=== PATIENT | female | born 1985 | race Two or more races ===

== ENCOUNTER 2019-06-18 13:03 | Emergency (ER) | payer OTHER ==
[~2019-06-18] VITALS: Ht 144.8 cm; Wt 53.5 kg
[~2019-06-18 13:03] MED LIST: KETO10TA2 PO; Mylicon 125MG PO; OSEL75CA PO; OXYC1TAB9 PO; PRENATABS FA TA1 TAB PO; PRENATE ADVANCE PO; PROVENTIL0.5 ML/2.5 IH; PROVENTIL3 ML/2.5 M IH; TL-SELECT DHA1 EACH PO
== END 2019-06-19 09:02 | disposition home or self-care (01) ==
LOC: ER 13:03
DX: N93.8 Other specified abnormal uterine and vaginal bleeding (principal); D64.89 Other specified anemias
CPT/HCPCS: 76830; 36430 ×2; 86904 ×2; 86922 ×2; P9021 ×2